=== PATIENT | female | born 1950 | race Caucasian/White ===

== ENCOUNTER → 2019-03-10 | Outpatient (CLI) | payer MEDICARE ==
[~2019-03-10] MED LIST: REGADENOSON 0.4 MG/5 ML DISP.SYRIN. IV ONE
--- NOTE | 2019-03-10 14:24 | PCVCIMAG ---
APPROVED REPORT Study performed: 03/10/2019 11:01:24 EXAM: Comprehensive 2D, Doppler, and color-flow Echocardiogram Patient Location: Echo lab Status: routine BSA: 2.28 HR: 77 bpmBP: 140/72 mmHg Rhythm: NSR Other Information Study Quality: Adequate Risk Factors: Cardiac Risk Factors: HTN Indications Dyspnea obesity 2D Dimensions IVSd: 10.87 (7-11mm) LVDd: 36.81 mm PWd: 10.30 (7-11mm) LVDs: 26.89 (25-40mm) Left Atrium: 38.66 (27-40mm) Aortic Root: 31.02 mm LV Single Plane 4CH: 58.37 % LV Single Plane 2CH: 64.82 % Biplane EF: 61.2 % Volumes Left Atrial Volume (Systole) Single Plane 4CH: 50.98 mLSingle Plane 2CH: 61.82 mL LA ESV Index: 25.00 mL/m2 Aortic Valve AoV Peak Douglas.: 1.51 m/s AO Peak Gr.: 9.12 mmHgLVOT Max P.10 mmHg LVOT Max V: 1.13 m/s Mitral Valve E/A Ratio: 0.8 MV Decel. Time: 283.70 ms MV E Max Douglas.: 0.65 m/s MV A Douglas.: 0.85 m/s IVRT: 107.27 ms Pulmonary Valve PV Peak Douglas.: 0.88 m/sPV Peak Gr.: 3.09 mmHg Pulmonary Vein P Vein S: 0.24 m/sP Vein A: 0.52 m/s P Vein D: 0.41 m/sP Vein A Dur.: 141.9 msec P Vein S/D Ratio: 0.59 Tricuspid Valve TR Peak Douglas.: 2.46 m/s TR Peak Gr.: 24.16 mmHg Left Ventricle The left ventricle is normal size. There is normal LV segmental wall motion. There is normal left ventricular wall thickness. Left ventricular systolic function is normal. The left ventricular ejection fraction is within the normal range. LVEF is 55%. Grade I - abnormal relaxation pattern. Right Ventricle The right ventricle is normal size. The right ventricular systolic function is normal. Atria The left atrium size is normal. The right atrium size is normal. Aortic Valve The aortic valve is normal in structure. No aortic regurgitation is present. There is no aortic valvular stenosis. Mitral Valve The mitral valve is normal in structure. Trace mitral regurgitation. No evidence of mitral valve stenosis. Tricuspid Valve The tricuspid valve is normal in structure. Mild tricuspid regurgitation with PAP of 31 mmHg. Pulmonic Valve The pulmonary valve is normal in structure. There is no pulmonic valvular regurgitation. Great Vessels The aortic root is normal in size. IVC is normal in size and collapses >50% with inspiration. Pericardium There is no pericardial effusion. There is no pleural effusion. <Conclusion> The left ventricle is normal size. LVEF is 55%. The aortic valve is normal in structure. The mitral valve is normal in structure. Trace mitral regurgitation. The tricuspid valve is normal in structure. Mild tricuspid regurgitation with PAP of 31 mmHg. The pulmonary valve is normal in structure. The aortic root is normal in size. There is no pericardial effusion. There is no pleural effusion.
== END | disposition home or self-care (01) ==
LOC: PCVCIMAG 08:00
PROVIDERS: ATTEND Internal Medicine
DX: I07.1 Rheumatic tricuspid insufficiency (principal); R06.00 Dyspnea, unspecified; E66.9 Obesity, unspecified; L40.50 Arthropathic psoriasis, unspecified; I10 Essential (primary) hypertension; M25.512 Pain in left shoulder; F41.9 Anxiety disorder, unspecified; B00.9 Herpesviral infection, unspecified; M54.5 Low back pain; G89.29 Other chronic pain; E78.00 Pure hypercholesterolemia, unspecified; Z68.39 Body mass index [BMI] 39.0-39.9, adult
CPT/HCPCS: 93306; G0463; J2785

== ENCOUNTER → 2019-07-06 | Outpatient (CLI) | payer MEDICARE | END | disposition home or self-care (01) | LOC: PCVCCLINIC 12:30 | PROVIDERS: ATTEND Internal Medicine | DX: R06.09 Other forms of dyspnea (principal); I34.0 Nonrheumatic mitral (valve) insufficiency; I10 Essential (primary) hypertension; M10.09 Idiopathic gout, multiple sites; F41.9 Anxiety disorder, unspecified; M19.90 Unspecified osteoarthritis, unspecified site; Z87.891 Personal history of nicotine dependence | CPT/HCPCS: G0463 ==